=== PATIENT | female | born 1935 | race Caucasian/White ===

== ENCOUNTER 2016-09-27 12:01 | Emergency (ER) | payer MEDICARE, OTHER ==
--- NOTE | 2016-09-27 12:35 | ER Document Report ---
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 TRAVEL OUTSIDE OF THE [place] IN LAST 30 DAYS: No - Related Data Allergies/Adverse Reactions: Penicillins Allergy (Intermediate, Verified 10/26/15 08:13) Hives Past Medical History - Past Medical History Cardiac Medical History: Reports: Hx Coronary Artery Disease, Hx Hypercholesterolemia, Hx Hypertension - MEDICATED, Hx Pulmonary Embolism Denies: Hx Heart Attack Pulmonary Medical History: Reports: Hx Asthma, Hx Pneumonia Denies: Hx Bronchitis, Hx COPD Neurological Medical History: Denies: Hx Cerebrovascular Accident, Hx Seizures Renal/ Medical History: Denies: Hx Peritoneal Dialysis GI Medical History: Reports: Hx Gastroesophageal Reflux Disease, Hx Hiatal Hernia. Denies: Hx Hepatitis, Hx Ulcer Musculoskeltal Medical History: Reports Hx Arthritis Infectious Medical History: Denies: Hx Hepatitis Past Surgical History: Reports: Hx Abdominal Surgery - tummy tuck, Hx Cholecystectomy, Hx Hysterectomy, Hx Orthopedic Surgery - right knee. Denies: Hx Mastectomy, Hx Open Heart Surgery, Hx Oral Surgery, Hx Pacemaker - Immunizations Hx Diphtheria, Pertussis, Tetanus Vaccination: Yes - 2008 Physical Exam - Vital signs Vitals: Temp Pulse Resp BP Pulse Ox 99 F 70 18 152/79 H 95 09/27/16 12:13 09/27/16 12:13 09/27/16 12:13 09/27/16 12:13 09/27/16 12:13 Course - Vital Signs Vital signs: Temp Pulse Resp BP Pulse Ox 99 F 70 18 152/79 H 95 09/27/16 12:13 09/27/16 12:13 09/27/16 12:13 09/27/16 12:13 09/27/16 12:13
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
[2016-09-27 13:00] LABS: ABSOLUTE BASOPHILS # (AUTO) 0.1 10^3/uL (0.0-0.2); ABSOLUTE EOSINOPHILS # (AUTO) 0.4 10^3/uL (0.0-0.6); ABSOLUTE LYMPHOCYTES (AUTO) 1.9 10^3/uL (0.5-4.7); ABSOLUTE MONOCYTES (AUTO) 0.6 10^3/uL (0.1-1.4); ABSOLUTE NEUT (AUTO) 5.1 10^3/uL (1.7-8.2); BASOPHILS % (AUTO) 1.2 % (0-2); EOSINOPHILS % (AUTO) 4.4 % (0-6); HEMATOCRIT 44.3 % (36.0-47.0); HEMOGLOBIN 14.6 g/dL (12.0-15.5); HGB HCT DIFFERENCE -0.5; LYMPHOCYTES % (AUTO) 23.7 % (13-45); MEAN CORPUSCULAR HGB CONC 32.9 g/dL (32.0-36.0); MEAN CORPUSCULAR VOLUME 91 fl (80-97); MONOCYTES % (AUTO) 7.9 % (3-13); RED BLOOD COUNT 4.86 10^6/uL (3.72-5.28); RED CELL DISTRIBUTION WIDTH 15.9 % (11.5-14.0); SEGMENTED NEUTROPHILS % (AUTO) 62.8 % (42-78); WHITE BLOOD COUNT 8.1 10^3/uL (4.0-10.5)
[2016-09-27 13:12] LABS: PROTHROMBIN TIME 22.7 SEC (11.4-15.4)
[2016-09-27 13:17] LABS: ALANINE AMINOTRANSFERASE 22 U/L (9-52); ALBUMIN 4.1 g/dL (3.5-5.0); ALKALINE PHOSPHATASE 98 U/L (38-126); ANION GAP 7 (5-19); ASPARTATE AMINO TRANSFERASE 19 U/L (14-36); BILIRUBIN,DIRECT 0.4 mg/dL (0.0-0.4); BILIRUBIN,TOTAL 0.6 mg/dL (0.2-1.3); BLOOD UREA NITROGEN 11 mg/dL (7-20); CALCIUM 9.3 mg/dL (8.4-10.2); CARBON DIOXIDE 33 mmol/L (22-30); CHLORIDE 101 mmol/L (98-107); CREATINE KINASE 62 U/L (30-135); CREATININE RESULT 0.73 mg/dL (0.52-1.25); GLUCOSE 95 mg/dL (75-110); POTASSIUM 4.5 mmol/L (3.6-5.0); SODIUM 140.8 mmol/L (137-145); TOTAL PROTEIN 7.3 g/dL (6.3-8.2)
[2016-09-27 13:28] LABS: CREATINE KINASE MB 0.61 ng/mL (<4.55)
[2016-09-27 13:31] LABS: TROPONIN I < 0.012 ng/mL
[2016-09-27 15:40] VITALS: BP 156/75
--- NOTE | 2016-09-27 17:04 | EKG REPORT ---
SEVERITY:- ABNORMAL ECG - SINUS RHYTHM LEFT ANTERIOR FASCICULAR BLOCK CONSIDER ANTERIOR INFARCT : Confirmed by: Killian Ambriz 27-Sep-2016 17:03:31
== END 2016-09-27 15:40 | disposition home or self-care (01) ==
LOC: ER 12:01
DX: R07.9 Chest pain, unspecified (principal); F41.9 Anxiety disorder, unspecified; I25.10 Atherosclerotic heart disease of native coronary artery without angina pectoris; E78.00 Pure hypercholesterolemia, unspecified; K21.9 Gastro-esophageal reflux disease without esophagitis; I10 Essential (primary) hypertension; Z86.711 Personal history of pulmonary embolism; Z88.0 Allergy status to penicillin; Z90.49 Acquired absence of other specified parts of digestive tract; Z90.710 Acquired absence of both cervix and uterus
CPT/HCPCS: 36415; 71010; 71275; 80053; 82550; 82553; 84484; 85025; 85610; 93005; 93010; 99285

== ENCOUNTER → 2016-11-11 | Outpatient (CLI) | payer MEDICARE, OTHER ==
[2016-11-11 10:56] LABS: ABSOLUTE BASOPHILS # (AUTO) 0.1 10^3/uL (0.0-0.2); ABSOLUTE EOSINOPHILS # (AUTO) 0.2 10^3/uL (0.0-0.6); ABSOLUTE LYMPHOCYTES (AUTO) 1.7 10^3/uL (0.5-4.7); ABSOLUTE MONOCYTES (AUTO) 0.5 10^3/uL (0.1-1.4); ABSOLUTE NEUT (AUTO) 4.6 10^3/uL (1.7-8.2); BASOPHILS % (AUTO) 0.9 % (0-2); EOSINOPHILS % (AUTO) 2.6 % (0-6); HEMATOCRIT 46.4 % (36.0-47.0); HEMOGLOBIN 15.3 g/dL (12.0-15.5); HGB HCT DIFFERENCE -0.5; LYMPHOCYTES % (AUTO) 24.5 % (13-45); MEAN CORPUSCULAR HEMOGLOBIN 30.2 pg (27.0-33.4); MEAN CORPUSCULAR VOLUME 91 fl (80-97); MONOCYTES % (AUTO) 6.6 % (3-13); RED BLOOD COUNT 5.07 10^6/uL (3.72-5.28); RED CELL DISTRIBUTION WIDTH 14.8 % (11.5-14.0); SEGMENTED NEUTROPHILS % (AUTO) 65.4 % (42-78)
[2016-11-11 11:19] LABS: CHOLESTEROL 127.75 mg/dL (0-200); Direct HDL 58 mg/dL (>40); TRIGLYCERIDES 165 mg/dL (<150)
[2016-11-11 11:37] LABS: DIRECT LDL 45 mg/dL (<100)
[2016-11-11 11:53] LABS: ALANINE AMINOTRANSFERASE 26 U/L (9-52); ALBUMIN 3.9 g/dL (3.5-5.0); ALKALINE PHOSPHATASE 90 U/L (38-126); ANION GAP 11 (5-19); ASPARTATE AMINO TRANSFERASE 18 U/L (14-36); BILIRUBIN,DIRECT 0.3 mg/dL (0.0-0.4); BILIRUBIN,TOTAL 0.4 mg/dL (0.2-1.3); BLOOD UREA NITROGEN 8 mg/dL (7-20); CALCIUM 9.2 mg/dL (8.4-10.2); CARBON DIOXIDE 29 mmol/L (22-30); CHLORIDE 103 mmol/L (98-107); CREATININE RESULT 0.65 mg/dL (0.52-1.25); GLUCOSE 97 mg/dL (75-110); POTASSIUM 4.5 mmol/L (3.6-5.0); SODIUM 142.6 mmol/L (137-145)
[2016-11-11 12:05] LABS: ANION GAP 11 (5-19); BLOOD UREA NITROGEN 8 mg/dL (7-20); CALCIUM 9.2 mg/dL (8.4-10.2); CARBON DIOXIDE 29 mmol/L (22-30); CHLORIDE 103 mmol/L (98-107); CREATININE RESULT 0.65 mg/dL (0.52-1.25); GLUCOSE 97 mg/dL (75-110); POTASSIUM 4.5 mmol/L (3.6-5.0); SODIUM 142.6 mmol/L (137-145)
== END ==
LOC: OD 10:10
PROVIDERS: ATTEND Physician Assistant
DX: B35.1 Tinea unguium (principal); E11.9 Type 2 diabetes mellitus without complications; E78.5 Hyperlipidemia, unspecified; I10 Essential (primary) hypertension; Z79.899 Other long term (current) drug therapy
CPT/HCPCS: 36415; 80048; 80053; 80061; 82043; 83036; 84443; 85025

== ENCOUNTER 2017-06-23 16:04 | Emergency (ER) | payer MEDICARE, OTHER ==
--- NOTE | 2017-06-23 16:56 | ER Document Report ---
ED Medical Screen (RME) - General Chief Complaint: GI Bleeding Stated Complaint: VOMITING Time Seen by Provider: 06/23/17 16:55 Notes: Patient states that she has been vomiting for the last several days and then today started vomiting up a lot of blood. States that it was black and she knows that it is blood. Has some epigastric abdominal pain as well. I have greeted and performed a rapid initial assessment of this patient. A comprehensive ED assessment and evaluation of the patient, analysis of test results and completion of the medical decision making process will be conducted by additional ED providers. TRAVEL OUTSIDE OF THE [place] IN LAST 30 DAYS: No - Related Data Allergies/Adverse Reactions: Penicillins Allergy (Intermediate, Verified 09/27/16 12:44) Hives Past Medical History - Past Medical History Cardiac Medical History: Reports: Hx Coronary Artery Disease, Hx Hypercholesterolemia, Hx Hypertension - MEDICATED, Hx Pulmonary Embolism Denies: Hx Heart Attack Pulmonary Medical History: Reports: Hx Asthma, Hx Pneumonia Denies: Hx Bronchitis, Hx COPD Neurological Medical History: Denies: Hx Cerebrovascular Accident, Hx Seizures Renal/ Medical History: Denies: Hx Peritoneal Dialysis GI Medical History: Reports: Hx Gastroesophageal Reflux Disease, Hx Hiatal Hernia. Denies: Hx Hepatitis, Hx Ulcer Musculoskeltal Medical History: Reports Hx Arthritis Infectious Medical History: Denies: Hx Hepatitis Past Surgical History: Reports: Hx Abdominal Surgery - tummy tuck, Hx Cholecystectomy, Hx Hysterectomy, Hx Orthopedic Surgery - right knee. Denies: Hx Mastectomy, Hx Open Heart Surgery, Hx Oral Surgery, Hx Pacemaker - Immunizations Hx Diphtheria, Pertussis, Tetanus Vaccination: Yes - 2008 Physical Exam - Vital signs Vitals: Temp Pulse Resp BP Pulse Ox 98.5 F 80 21 H 102/78 96 06/23/17 16:29 06/23/17 16:29 06/23/17 16:29 06/23/17 16:29 06/23/17 16:29 Course - Vital Signs Vital signs: Temp Pulse Resp BP Pulse Ox 98.5 F 80 21 H 102/78 96 06/23/17 16:29 06/23/17 16:29 06/23/17 16:29 06/23/17 16:29 06/23/17 16:29
[2017-06-23 18:11] LABS: ABSOLUTE BASOPHILS # (AUTO) 0.1 10^3/uL (0.0-0.2); ABSOLUTE EOSINOPHILS # (AUTO) 0.1 10^3/uL (0.0-0.6); ABSOLUTE LYMPHOCYTES (AUTO) 1.9 10^3/uL (0.5-4.7); ABSOLUTE MONOCYTES (AUTO) 0.6 10^3/uL (0.1-1.4); ABSOLUTE NEUT (AUTO) 5.1 10^3/uL (1.7-8.2); BASOPHILS % (AUTO) 1.1 % (0-2); EOSINOPHILS % (AUTO) 1.6 % (0-6); HEMATOCRIT 41.1 % (36.0-47.0); HEMOGLOBIN 13.7 g/dL (12.0-15.5); LYMPHOCYTES % (AUTO) 24.4 % (13-45); MEAN CORPUSCULAR HEMOGLOBIN 29.7 pg (27.0-33.4); MEAN CORPUSCULAR HGB CONC 33.3 g/dL (32.0-36.0); MEAN CORPUSCULAR VOLUME 89 fl (80-97); MONOCYTES % (AUTO) 7.6 % (3-13); PLATELET COUNT 262 10^3/uL (150-450); RED BLOOD COUNT 4.62 10^6/uL (3.72-5.28); RED CELL DISTRIBUTION WIDTH 14.5 % (11.5-14.0); SEGMENTED NEUTROPHILS % (AUTO) 65.3 % (42-78); TOTAL CELLS COUNTED % (AUTO) 100 %; WHITE BLOOD COUNT 7.9 10^3/uL (4.0-10.5)
[2017-06-23 18:13] LABS: INTERNATIONAL RATION (INR) 2.13
[2017-06-23 18:14] LABS: PARTIAL THROMBOPLASTIN TIME 39.1 SEC (23.5-35.8)
[2017-06-23 18:31] LABS: ALANINE AMINOTRANSFERASE 29 U/L (9-52); ALKALINE PHOSPHATASE 76 U/L (38-126); ANION GAP 7 (5-19); ASPARTATE AMINO TRANSFERASE 17 U/L (14-36); BILIRUBIN,DIRECT 0.1 mg/dL (0.0-0.4); BILIRUBIN,TOTAL 0.2 mg/dL (0.2-1.3); BLOOD UREA NITROGEN 21 mg/dL (7-20); CALCIUM 9.1 mg/dL (8.4-10.2); CARBON DIOXIDE 35 mmol/L (22-30); CHLORIDE 100 mmol/L (98-107); GLUCOSE 96 mg/dL (75-110); POTASSIUM 4.5 mmol/L (3.6-5.0); SODIUM 142.4 mmol/L (137-145); TOTAL PROTEIN 6.7 g/dL (6.3-8.2)
--- NOTE | 2017-06-23 18:35 | EKG REPORT ---
SEVERITY:- ABNORMAL ECG - SINUS RHYTHM LEFT ANTERIOR FASCICULAR BLOCK ABNRM R PROG, CONSIDER ASMI OR LEAD PLACEMENT BORDERLINE T ABNORMALITIES, ANTERIOR LEADS : Confirmed by: Biju Billings MD 23-Jun-2017 18:35:03
[2017-06-23] MEDS ORDERED: PANTOPRAZOLE SODIUM 40 MG VIAL IV ONE (20:16)
[2017-06-23] MEDS ORDERED: PANTOPRAZOLE SODIUM 40 MG VIAL IV PRN (20:16)
[2017-06-23] MEDS ORDERED: PHYTONADIONE 5 MG TABLET PO ONE (20:17)
--- NOTE | 2017-06-23 20:22 | ER Document Report ---
ED General - General Chief Complaint: GI Bleeding Stated Complaint: VOMITING Time Seen by Provider: 06/23/17 16:55 Notes: Patient is an 81-year-old female with a past medical history of factor V Leiden , prior upper GI bleed, currently anticoagulated on warfarin for a pulmonary embolus who presents with 3 days of vomiting and 4 episodes of dark bloody vomiting today. Patient reports "a lot of" coffee-ground emesis today. She denies a recent history of the same. She has not seen her primary doctor GI doctor regarding this concern. She does not take any form of proton pump inhibitor or H2 lamar. She notes a dull, constant, aching epigastric abdominal pain that has been present for the past 3-4 days. Nothing improves or worsens that pain. She denies any chest pain, shortness of breath or syncope. She denies any bright red blood vomitus, melena or hematochezia. TRAVEL OUTSIDE OF THE [place] IN LAST 30 DAYS: No - Related Data Allergies/Adverse Reactions: Penicillins Allergy (Intermediate, Verified 09/27/16 12:44) Hives Past Medical History - General Information source: Patient - Social History Smoking Status: Never Smoker Frequency of alcohol use: None Drug Abuse: None Lives with: Family Family History: Reviewed & Not Pertinent, Other Patient has suicidal ideation: No Patient has homicidal ideation: No - Past Medical History Cardiac Medical History: Reports: Hx Coronary Artery Disease, Hx Hypercholesterolemia, Hx Hypertension - MEDICATED, Hx Pulmonary Embolism Denies: Hx Heart Attack Pulmonary Medical History: Reports: Hx Asthma, Hx Pneumonia Denies: Hx Bronchitis, Hx COPD Neurological Medical History: Denies: Hx Cerebrovascular Accident, Hx Seizures Renal/ Medical History: Denies: Hx Peritoneal Dialysis GI Medical History: Reports: Hx Gastroesophageal Reflux Disease, Hx Hiatal Hernia. Denies: Hx Hepatitis, Hx Ulcer Musculoskeltal Medical History: Reports Hx Arthritis Infectious Medical History: Denies: Hx Hepatitis Past Surgical History: Reports: Hx Abdominal Surgery - tummy tuck, Hx Cholecystectomy, Hx Hysterectomy, Hx Orthopedic Surgery - right knee. Denies: Hx Mastectomy, Hx Open Heart Surgery, Hx Oral Surgery, Hx Pacemaker - Immunizations Hx Diphtheria, Pertussis, Tetanus Vaccination: Yes - 2008 Review of Systems - Review of Systems Notes: Constitutional: Negative for fever. HENT: Negative for sore throat. Eyes: Negative for visual changes. Cardiovascular: Negative for chest pain. Respiratory: Negative for shortness of breath. Gastrointestinal: Positive for epigastric abdominal pain and coffee-ground emesis Genitourinary: Negative for dysuria. Musculoskeletal: Negative for back pain. Skin: Negative for rash. Neurological: Negative for headaches, weakness or numbness. 10 point ROS negative except as marked above and in HPI. Physical Exam - Vital signs Vitals: Temp Pulse Resp BP Pulse Ox 98.5 F 80 21 H 102/78 96 06/23/17 16:29 06/23/17 16:29 06/23/17 16:29 06/23/17 16:29 06/23/17 16:29 Interpretation: Normal Notes: PHYSICAL EXAMINATION: GENERAL: Well-appearing, well-nourished and in no acute distress. HEAD: Atraumatic, normocephalic. EYES: Pupils equal round and reactive to light, extraocular movements intact, sclera anicteric, conjunctiva are normal. ENT: nares patent, oropharynx clear without exudates. Moist mucous membranes. NECK: Normal range of motion, supple without lymphadenopathy LUNGS: Breath sounds clear to auscultation bilaterally and equal. No wheezes rales or rhonchi. HEART: Regular rate and rhythm without murmurs ABDOMEN: Soft, nontender, normoactive bowel sounds. No guarding, no rebound. No masses appreciated. EXTREMITIES: Normal range of motion, no pitting or edema. No cyanosis. NEUROLOGICAL: No focal neurological deficits. Moves all extremities spontaneously and on command. PSYCH: Loquacious but polite and contact. SKIN: Warm, Dry, normal turgor, no rashes or lesions noted. Course - Re-evaluation Re-evalutation: 06/23/17 20:18 Patient presents with multiple episodes of dark bloody vomitus episodes today, currently and evaluated on warfarin with a therapeutic INR at 2.13. Patient is otherwise hemodynamically stable, no active vomiting here in the emergency department although she does have stool occult positive for blood. Abdominal exam is otherwise benign with the exception of mild epigastric abdominal tenderness. Hemoglobin is within acceptable limits but has dropped 2 points from a year ago. Will repeat hemoglobin, provide oral vitamin K, begin a Protonix infusion, and I have contacted [facility] for transfer as patient will require an endoscopy and we do not currently have GI available. 06/24/17 00:24 Patient has been reassessed prior to transport. Repeat hemoglobin has down trended by 0.7. She remains hemodynamically stable, no further episodes of hematemesis. Stable for transfer - Vital Signs Vital signs: Temp Pulse Resp BP Pulse Ox 97.6 F 74 17 125/72 92 06/24/17 00:36 06/24/17 00:36 06/24/17 00:36 06/24/17 00:36 06/24/17 00:36 - Laboratory Result Diagrams: 06/23/17 20:30 06/23/17 17:43 Laboratory results interpreted by me: 06/23/17 06/23/17 06/23/17 17:43 17:43 17:43 RDW 14.5 H PT 25.0 H APTT 39.1 H Carbon Dioxide 35 H BUN 21 H 06/23/17 20:30 RDW 14.9 H PT APTT Carbon Dioxide BUN Discharge - Discharge Disposition: [facility] Referrals: MIGUEL ANGEL STALLWORTH MD [Primary Care Provider] - Follow up as needed
[2017-06-23 20:45] LABS: HEMATOCRIT 38.9 % (36.0-47.0); HEMOGLOBIN 13.1 g/dL (12.0-15.5); MEAN CORPUSCULAR HEMOGLOBIN 30.1 pg (27.0-33.4); MEAN CORPUSCULAR HGB CONC 33.7 g/dL (32.0-36.0); MEAN CORPUSCULAR VOLUME 89 fl (80-97); PLATELET COUNT 240 10^3/uL (150-450); RED BLOOD COUNT 4.35 10^6/uL (3.72-5.28); RED CELL DISTRIBUTION WIDTH 14.9 % (11.5-14.0)
[2017-06-24 00:13] VITALS: BP 125/72
== END 2017-06-24 00:50 | disposition short-term general hospital (02) ==
LOC: ER 16:04
DX: K92.2 Gastrointestinal hemorrhage, unspecified (principal); D68.51 Activated protein C resistance; K92.1 Melena; R11.2 Nausea with vomiting, unspecified; Z79.01 Long term (current) use of anticoagulants; Z86.711 Personal history of pulmonary embolism
CPT/HCPCS: 93005; 99285; 96365; 96366; 36415; 85025; 85027; 85610; 85730; 82272; 80053; 84484; 93010; A9270; C9113; J3490; S0164

== ENCOUNTER 2017-07-12 08:26 | Day surgery (SDC) | payer MEDICARE, OTHER ==
[~2017-07-12 08:26] MED LIST: PROPOFOL INJ 200 MG/20 ML VIAL IV ONE
[2017-07-12] MEDS ORDERED: PROPOFOL INJ 200 MG/20 ML VIAL IV ONE (10:33)
[2017-07-12] MEDS ORDERED: SIMETHICONE 80 MG TAB.CHEW ONE (10:34)
[2017-07-12] MEDS ORDERED: ACETAMINOPHEN 325 MG TABLET ONE (10:45)
[2017-07-12 11:31] VITALS: BP 167/86
--- NOTE | 2017-07-12 15:53 | Operative Report ---
Operative Report DATE OF SURGERY: 07/12/17 Operative Report: The risks, benefits and alternatives of the procedure including risks of bleeding, patient requiring surgery are explained to the patient in detail and informed consent was obtained. Patient is brought back to the endoscopy suite and placed in a left, lateral decubital position. Timeout was called. Propofol medications administered. A rectal examination is done which did not reveal any masses, tears or fissures. An Olympus videoscope was inserted into the patient's rectum. It is carefully advanced all the way to the cecum. The cecum was identified by the usual anatomical landmarks including the ileocecal valve as well as appendiceal office. Photodocumentation is obtained. Scope was then sequentially pulled back via the various segments of the colon including the ascending colon, hepatic flexure, transverse colon, splenic flexure, descending colon and finally into the rectosigmoid portions of the colon. Retroflexion maneuvers performed. The risks benefits and alternatives of the procedure explained to the patient in detail and informed consent is obtained.A GIF Olympus video scope was inserted into the patient's mouth and hypopharynx, the esophagus is identified intubated and insufflated, the scope was then advanced through the esophagus stomach and duodenum, retroflexion maneuver is done ,the esophagus stomach and first and second portions of the duodenum examined PREOPERATIVE DIAGNOSIS: History of previous hematemesis. Rectal bleeding POSTOPERATIVE DIAGNOSIS: Descending colon polyp is removed via snare polypectomy. Internal hemorrhoids. Diverticulosis. Hiatal hernia. Gastritis status post biopsy rule out Helicobacter pylori OPERATION: Colonoscopy with snare polypectomy. EGD with biopsy SURGEON: ROSARIO MITCHELL ANESTHESIA: LMAC TISSUE REMOVED OR ALTERED: As noted above. COMPLICATIONS: None. ESTIMATED BLOOD LOSS: None. INTRAOPERATIVE FINDINGS: As noted above. PROCEDURE: Patient tolerated procedure well. No immediate postprocedure complications are noted. Patient discharged in good condition. Discharge date 07/12/2017. Discharge diet: Regular. Discharge activity: Regular. 2-3 week follow-up to discuss findings. 3-5 year surveillance colonoscopy. Can resume Coumadin. Patient is instructed to call the office or proceed to the emergency room should there be any further problems or questions.
== END 2017-07-12 11:10 | disposition home or self-care (01) ==
LOC: END 08:26
PROVIDERS: ATTEND Internal Medicine Gastroenterology
PROC: 0DB68ZX Excision of Stomach, Via Natural or Artificial Opening Endoscopic, Diagnostic (ICD-10-PCS; principal; 2017-07-12 10:00)
PROC: 0DBM8ZX Excision of Descending Colon, Via Natural or Artificial Opening Endoscopic, Diagnostic (ICD-10-PCS; 2017-07-12 10:00)
DX: K29.30 Chronic superficial gastritis without bleeding (principal); K63.5 Polyp of colon; K92.0 Hematemesis; K62.5 Hemorrhage of anus and rectum; K44.9 Diaphragmatic hernia without obstruction or gangrene; K57.30 Diverticulosis of large intestine without perforation or abscess without bleeding; K64.8 Other hemorrhoids; K31.9 Disease of stomach and duodenum, unspecified; E11.9 Type 2 diabetes mellitus without complications; E78.00 Pure hypercholesterolemia, unspecified; Z79.899 Other long term (current) drug therapy
CPT/HCPCS: 43239; 45385; 82962; 88342 ×2; 88305 ×2; A9270 ×2; J2704; 813

== ENCOUNTER 2017-08-26 13:17 | Emergency (ER) | payer MEDICARE, OTHER ==
[2017-08-26] MEDS ORDERED: IPRATROPIUM/ALBUTEROL 0.5-2.5 MG/3 ML AMPUL NEB ONE (13:32)
[2017-08-26] MEDS ORDERED: PREDNISONE 20 MG TABLET PO ONE (13:32)
--- NOTE | 2017-08-26 13:36 | ER Document Report ---
ED Medical Screen (RME) - General Chief Complaint: Shortness Of Breath Stated Complaint: COUGH,CONGESTION,WHEEZING Time Seen by Provider: 08/26/17 13:29 Notes: RME DISCLOSURE I have seen this patient as part of a Rapid Medical Evaluation and, if applicable, placed any initially appropriate orders. The patient will be seen and fully evaluated, including a full history and physical exam, by a provider ( in Main ED or Fast Track) when a room becomes available. 81-year-old female here with complaints of cough shortness of breath wheezing ongoing for the past 6-7 days. Initially the cough was productive of green sputum but now "I can get anything to come up". She has not yet seen a physician. She has been taking [id number] medications. Quit smoking 30 years ago. TRAVEL OUTSIDE OF THE [place] IN LAST 30 DAYS: No COUNTRY TRAVELED TO/FROM: [place] - Related Data Allergies/Adverse Reactions: Penicillins Allergy (Intermediate, Verified 07/12/17 08:30) Hives Past Medical History - Social History Chew tobacco use (# tins/day): No Frequency of alcohol use: None Drug Abuse: None - Past Medical History Cardiac Medical History: Reports: Hx Coronary Artery Disease, Hx Hypercholesterolemia, Hx Hypertension - MEDICATED, Hx Pulmonary Embolism Denies: Hx Heart Attack Pulmonary Medical History: Reports: Hx Asthma, Hx Pneumonia Denies: Hx Bronchitis, Hx COPD Neurological Medical History: Denies: Hx Cerebrovascular Accident, Hx Seizures Renal/ Medical History: Denies: Hx Peritoneal Dialysis GI Medical History: Reports: Hx Gastroesophageal Reflux Disease, Hx Hiatal Hernia. Denies: Hx Hepatitis, Hx Ulcer Musculoskeltal Medical History: Reports Hx Arthritis Infectious Medical History: Denies: Hx Hepatitis Past Surgical History: Reports: Hx Abdominal Surgery - tummy tuck, Hx Cholecystectomy, Hx Hysterectomy, Hx Orthopedic Surgery - right knee. Denies: Hx Mastectomy, Hx Open Heart Surgery, Hx Oral Surgery, Hx Pacemaker - Immunizations Hx Diphtheria, Pertussis, Tetanus Vaccination: Yes - 2008 Physical Exam - Vital signs Vitals: Temp Pulse Resp BP Pulse Ox 98.0 F 96 24 H 128/78 H 93 08/26/17 13:23 08/26/17 13:23 08/26/17 13:23 08/26/17 13:23 08/26/17 13:23 Course - Vital Signs Vital signs: Temp Pulse Resp BP Pulse Ox 98.0 F 96 24 H 128/78 H 93 08/26/17 13:23 08/26/17 13:23 08/26/17 13:23 08/26/17 13:23 08/26/17 13:23
[2017-08-26 14:25] LABS: ABSOLUTE EOSINOPHILS # (AUTO) 0.1 10^3/uL (0.0-0.6); ABSOLUTE LYMPHOCYTES (AUTO) 1.4 10^3/uL (0.5-4.7); ABSOLUTE MONOCYTES (AUTO) 0.5 10^3/uL (0.1-1.4); ABSOLUTE NEUT (AUTO) 2.4 10^3/uL (1.7-8.2); BASOPHILS % (AUTO) 0.8 % (0-2); EOSINOPHILS % (AUTO) 2.3 % (0-6); HEMATOCRIT 44.2 % (36.0-47.0); HEMOGLOBIN 14.8 g/dL (12.0-15.5); LYMPHOCYTES % (AUTO) 32.1 % (13-45); MEAN CORPUSCULAR HEMOGLOBIN 30.1 pg (27.0-33.4); MEAN CORPUSCULAR HGB CONC 33.5 g/dL (32.0-36.0); MEAN CORPUSCULAR VOLUME 90 fl (80-97); MONOCYTES % (AUTO) 11.8 % (3-13); PLATELET COUNT 230 10^3/uL (150-450); RED BLOOD COUNT 4.91 10^6/uL (3.72-5.28); RED CELL DISTRIBUTION WIDTH 14.7 % (11.5-14.0); TOTAL CELLS COUNTED % (AUTO) 100 %; WHITE BLOOD COUNT 4.5 10^3/uL (4.0-10.5)
[2017-08-26 14:42] LABS: ANION GAP 11 (5-19); BLOOD UREA NITROGEN 11 mg/dL (7-20); CALCIUM 9.2 mg/dL (8.4-10.2); CARBON DIOXIDE 28 mmol/L (22-30); CHLORIDE 100 mmol/L (98-107); GLUCOSE 123 mg/dL (75-110); POTASSIUM 4.2 mmol/L (3.6-5.0)
--- NOTE | 2017-08-26 14:43 | ER Document Report ---
ED General - General Mode of Arrival: Ambulatory Information source: Patient TRAVEL OUTSIDE OF THE [place] IN LAST 30 DAYS: No COUNTRY TRAVELED TO/FROM: [place] <LUZ KEATING - Last Filed: 08/26/17 14:44> <SUZANNAJEAN-PIERREJOSE EDUARDO - Last Filed: 08/26/17 23:21> - General Chief Complaint: Shortness Of Breath Stated Complaint: COUGH,CONGESTION,WHEEZING Time Seen by Provider: 08/26/17 13:29 Notes: Patient is an 81 year old female with a history of COPD, Leiden Factor 5, Emphysema, and diabetes presents to the emergency department complaining of cough and congestion as well as shortness of breath. Patient states that her symptoms were onset 6 days ago after she took a flight to [place] from [place]. Patient states that after over the last 6 days she had a peak temperature of 103.4. Patient states that she initially had a productive cough with green sputum but states she now has a nonproductive cough. Patient's PCP is Dr. Mejia and her process tank tender is Dr. Garber. (LUZ KEATING) - Related Data Allergies/Adverse Reactions: Penicillins Allergy (Intermediate, Verified 07/12/17 08:30) Hives Past Medical History - General Information source: Patient - Social History Smoking Status: Former Smoker Chew tobacco use (# tins/day): No Frequency of alcohol use: None Drug Abuse: None Family History: Reviewed & Not Pertinent, Other Patient has suicidal ideation: No Patient has homicidal ideation: No - Past Medical History Cardiac Medical History: Reports: Hx Coronary Artery Disease, Hx Hypercholesterolemia, Hx Hypertension - MEDICATED, Hx Pulmonary Embolism Pulmonary Medical History: Reports: Hx Asthma, Hx Bronchitis, Hx COPD, Hx Pneumonia GI Medical History: Reports: Hx Gastroesophageal Reflux Disease, Hx Hiatal Hernia Musculoskeltal Medical History: Reports Hx Arthritis Past Surgical History: Reports: Hx Abdominal Surgery - tummy tuck, Hx Cholecystectomy, Hx Hysterectomy, Hx Orthopedic Surgery - right knee - Immunizations Hx Diphtheria, Pertussis, Tetanus Vaccination: Yes - 2008 <LUZ KEATING - Last Filed: 08/26/17 14:44> Review of Systems - Review of Systems Constitutional: See HPI, Fever EENT: See HPI Cardiovascular: No symptoms reported Respiratory: See HPI, Cough, Short of breath Gastrointestinal: No symptoms reported Genitourinary: No symptoms reported Female Genitourinary: No symptoms reported Musculoskeletal: No symptoms reported Skin: No symptoms reported Hematologic/Lymphatic: No symptoms reported Neurological/Psychological: No symptoms reported -: Yes All other systems reviewed and negative <LUZ KEATING - Last Filed: 08/26/17 14:44> Physical Exam <RISHABHAXELTANNER - Last Filed: 08/26/17 14:44> <JOSE EDUARDO SAM - Last Filed: 08/26/17 23:21> - Vital signs Vitals: Temp Pulse Resp BP Pulse Ox 98.0 F 96 24 H 128/78 H 93 08/26/17 13:23 08/26/17 13:23 08/26/17 13:23 08/26/17 13:23 08/26/17 13:23 - Notes Notes: GENERAL: Alert, interacts well. No acute distress. HEAD: Normocephalic, atraumatic. EYES: Pupils equal, round, and reactive to light. Extraocular movements intact. ENT: Oral mucosa moist, tongue midline. NECK: Full range of motion. Supple. Trachea midline. LUNGS: Wet cough with coarse rhonchi, trace expiratory wheezes. No rales. No respiratory distress. HEART: Regular rate and rhythm. No murmurs, gallops, or rubs. ABDOMEN: Soft, non-tender. Non-distended. Bowel sounds present in all 4 quadrants. EXTREMITIES: Moves all 4 extremities spontaneously. NEUROLOGICAL: Alert and oriented x3. Normal speech. PSYCH: Normal affect, normal mood. SKIN: Warm, dry, normal turgor. No rashes or lesions noted. (LUZ KEATING) Course - Laboratory Result Diagrams: 08/26/17 13:59 08/26/17 13:59 <LUZ KEATING - Last Filed: 08/26/17 14:44> - Laboratory Result Diagrams: 08/26/17 13:59 08/26/17 13:59 <JOSE EDUARDO SAM - Last Filed: 08/26/17 23:21> - Re-evaluation Re-evalutation: 08/26/17 16:50 CBC unremarkable, BMP unremarkable, chest x-ray shows no acute process. Patient is having an acute exacerbation of COPD with increased sputum production and fevers, this is been going on for at least 7 days. Patient fits criteria for treatment with antibiotics. I will start azithromycin in addition to prednisone. Discharged home. (JOSE EDUARDO SAM) - Vital Signs Vital signs: Temp Pulse Resp BP Pulse Ox 98.0 F 96 20 146/71 H 94 08/26/17 13:23 08/26/17 13:23 08/26/17 16:01 08/26/17 16:01 08/26/17 16:01 - Laboratory Laboratory results interpreted by me: 08/26/17 08/26/17 13:59 13:59 RDW 14.7 H Glucose 123 H Discharge <LUZ KEATING - Last Filed: 08/26/17 14:44> <JOSE EDUARDO SAM - Last Filed: 08/26/17 23:21> - Discharge Clinical Impression: Acute exacerbation of chronic obstructive pulmonary disease (COPD) Condition: Stable Disposition: HOME, SELF-CARE Additional Instructions: Today you have an acute exacerbation of your COPD. At this is a bacterial bronchitis. Please take your breathing treatments and inhalers, steroids and antibiotics as directed. Do not stop the steroids or the antibiotics early. Please return to the emergency department for worsening cough, worsening shortness of breath or any new or concerning symptoms. Prescriptions: Azithromycin 250 mg PO DAILY #4 tablet Prednisone [Deltasone 20 mg Tablet] 3 tab PO DAILY 4 Days tablet Referrals: MIGUEL ANGEL MEJIA MD [Primary Care Provider] - Follow up in 3-5 days Scribe Attestation: 08/26/17 23:21 I personally performed the services described in the documentation, reviewed and edited the documentation which was dictated to the scribe in my presence, and it accurately records my words and actions. (JOSE EDUARDO SAM) Scribe Documentation - Scribe Written by Sin:: Sin Arora, 08/26/2017 14:51 acting as scribe for :: Júnior <LUZ KEATING - Last Filed: 08/26/17 14:44>
--- NOTE | 2017-08-26 15:29 | RADIOLOGY REPORT (SQ) ---
EXAM DESCRIPTION: CHEST 2 VIEWS COMPLETED DATE/TIME: 08/26/2017 3:07 pm REASON FOR STUDY: cough sob; eval pneumonia COMPARISON: 05/05/2015 EXAM PARAMETERS: NUMBER OF VIEWS: two views TECHNIQUE: Digital Frontal and Lateral radiographic views of the chest acquired. RADIATION DOSE: NA LIMITATIONS: none FINDINGS: LUNGS AND PLEURA: No consolidation, masses or pneumothorax. Similar interstitial -nodular markings. No pleural effusion. MEDIASTINUM AND HILAR STRUCTURES: Stable. HEART AND VASCULAR STRUCTURES: Heart normal size. No evidence for failure. BONES: No acute findings. HARDWARE: None in the chest. OTHER: No other significant finding. IMPRESSION: NO ACUTE RADIOGRAPHIC FINDING IN THE CHEST. TECHNICAL DOCUMENTATION: JOB ID: [id number] 2010 [employer]- All Rights Reserved Reading location - IP/workstation name: [email or web address]
[2017-08-26 16:06] VITALS: BP 146/71
[2017-08-26] MEDS ORDERED: AZITHROMYCIN 250 MG TABLET PO ONE (16:49)
== END 2017-08-26 17:02 | disposition home or self-care (01) ==
LOC: ER 13:17
DX: J43.9 Emphysema, unspecified (principal); R06.02 Shortness of breath; R05 Cough; R09.81 Nasal congestion; R06.2 Wheezing; D68.51 Activated protein C resistance; E11.9 Type 2 diabetes mellitus without complications; R50.9 Fever, unspecified; Z87.891 Personal history of nicotine dependence; I25.10 Atherosclerotic heart disease of native coronary artery without angina pectoris; I10 Essential (primary) hypertension
CPT/HCPCS: 94640; 99285; 36415; 87040; 85025; 80048; 71046; A9270 ×3; J7512; J7620

== ENCOUNTER 2017-09-01 14:18 | Emergency (ER) | payer MEDICARE, OTHER ==
[2017-09-01] MEDS ORDERED: IPRATROPIUM/ALBUTEROL 0.5-2.5 MG/3 ML AMPUL NEB ONE (15:36)
[2017-09-01] MEDS ORDERED: METHYLPREDNISOLONE INJ 125 MG/2 ML SDV IV ONE (15:36)
[2017-09-01 16:07] LABS: ABSOLUTE BASOPHILS # (AUTO) 0.1 10^3/uL (0.0-0.2); ABSOLUTE EOSINOPHILS # (AUTO) 0.2 10^3/uL (0.0-0.6); ABSOLUTE LYMPHOCYTES (AUTO) 2.7 10^3/uL (0.5-4.7); ABSOLUTE NEUT (AUTO) 7.3 10^3/uL (1.7-8.2); BASOPHILS % (AUTO) 0.7 % (0-2); EOSINOPHILS % (AUTO) 1.6 % (0-6); HEMATOCRIT 42.2 % (36.0-47.0); HEMOGLOBIN 13.8 g/dL (12.0-15.5); MEAN CORPUSCULAR HEMOGLOBIN 29.7 pg (27.0-33.4); MEAN CORPUSCULAR HGB CONC 32.7 g/dL (32.0-36.0); MEAN CORPUSCULAR VOLUME 91 fl (80-97); MONOCYTES % (AUTO) 8.5 % (3-13); PLATELET COUNT 485 10^3/uL (150-450); RED BLOOD COUNT 4.65 10^6/uL (3.72-5.28); RED CELL DISTRIBUTION WIDTH 14.7 % (11.5-14.0); SEGMENTED NEUTROPHILS % (AUTO) 65.2 % (42-78); TOTAL CELLS COUNTED % (AUTO) 100 %; WHITE BLOOD COUNT 11.2 10^3/uL (4.0-10.5)
[2017-09-01 16:10] LABS: VENOUS BLOOD BASE EXCESS 3.6 mmol/L; VENOUS BLOOD HCO3 28.8 mmol/L (20-32); VENOUS BLOOD PCO2 45.7 mmHg (35-63); VENOUS BLOOD PH 7.42 (7.30-7.42)
--- NOTE | 2017-09-01 16:15 | RADIOLOGY REPORT (SQ) ---
EXAM DESCRIPTION: CHEST 2 VIEWS COMPLETED DATE/TIME: 09/01/2017 4:05 pm REASON FOR STUDY: SOB COMPARISON: 08/26/2017. EXAM PARAMETERS: NUMBER OF VIEWS: two views TECHNIQUE: Digital Frontal and Lateral radiographic views of the chest acquired. RADIATION DOSE: NA LIMITATIONS: none FINDINGS: LUNGS AND PLEURA: No opacities, masses or pneumothorax. No pleural effusion. MEDIASTINUM AND HILAR STRUCTURES: No masses or contour abnormalities. HEART AND VASCULAR STRUCTURES: Heart normal size. No evidence for failure. BONES: No acute findings. HARDWARE: None in the chest. OTHER: Hiatal hernia. IMPRESSION: NO ACUTE RADIOGRAPHIC FINDING IN THE CHEST. TECHNICAL DOCUMENTATION: JOB ID: [id number] [employer]- All Rights Reserved Reading location - IP/workstation name: [email or web address]
[2017-09-01 16:33] LABS: ALANINE AMINOTRANSFERASE 25 U/L (9-52); ALBUMIN 3.5 g/dL (3.5-5.0); ALKALINE PHOSPHATASE 66 U/L (38-126); ANION GAP 9 (5-19); ASPARTATE AMINO TRANSFERASE 71 U/L (14-36); BILIRUBIN,DIRECT 0.3 mg/dL (0.0-0.4); BILIRUBIN,TOTAL 0.3 mg/dL (0.2-1.3); BLOOD UREA NITROGEN 17 mg/dL (7-20); CALCIUM 8.3 mg/dL (8.4-10.2); CARBON DIOXIDE 29 mmol/L (22-30); CHLORIDE 101 mmol/L (98-107); CREATINE KINASE 41 U/L (30-135); GLUCOSE 89 mg/dL (75-110); POTASSIUM 4.6 mmol/L (3.6-5.0); SODIUM 138.6 mmol/L (137-145); TOTAL PROTEIN 6.3 g/dL (6.3-8.2)
--- NOTE | 2017-09-01 16:33 | ER Document Report ---
ED Respiratory Problem - General Chief Complaint: Shortness Of Breath Stated Complaint: DIFFICULTY BREATHING Time Seen by Provider: 09/01/17 15:35 Notes: The patient is an 81-year-old female, past medical history COPD, presents with several weeks of cough and mild shortness of breath. She was seen in the ER 6 days ago and started on prednisone and azithromycin with improvement of her shortness of breath and coughing. However, when she stopped her steroids, shortness of breath and coughing return. She has been trying her albuterol without much relief of her symptoms. She denies fevers, chest pain, hemoptysis , nausea, vomiting, sputum, recent travel, back pain, headache or rash. TRAVEL OUTSIDE OF THE [place] IN LAST 30 DAYS: No COUNTRY TRAVELED TO/FROM: [place] - Related Data Allergies/Adverse Reactions: Penicillins Allergy (Intermediate, Verified 07/12/17 08:30) Hives Past Medical History - General Information source: Patient - Social History Smoking Status: Former Smoker Family History: Reviewed & Not Pertinent, Other - Past Medical History Cardiac Medical History: Reports: Hx Coronary Artery Disease, Hx Hypercholesterolemia, Hx Hypertension - MEDICATED, Hx Pulmonary Embolism Denies: Hx Heart Attack Pulmonary Medical History: Reports: Hx Asthma, Hx Bronchitis, Hx COPD, Hx Pneumonia Neurological Medical History: Denies: Hx Cerebrovascular Accident, Hx Seizures Renal/ Medical History: Denies: Hx Peritoneal Dialysis GI Medical History: Reports: Hx Gastroesophageal Reflux Disease, Hx Hiatal Hernia. Denies: Hx Hepatitis, Hx Ulcer Musculoskeltal Medical History: Reports Hx Arthritis Infectious Medical History: Denies: Hx Hepatitis Past Surgical History: Reports: Hx Abdominal Surgery - tummy tuck, Hx Cholecystectomy, Hx Hysterectomy, Hx Orthopedic Surgery - right knee. Denies: Hx Mastectomy, Hx Open Heart Surgery, Hx Oral Surgery, Hx Pacemaker - Immunizations Hx Diphtheria, Pertussis, Tetanus Vaccination: Yes - 2008 Review of Systems - Review of Systems Notes: REVIEW OF SYSTEMS: CONSTITUTIONAL: -fevers, -chills EENT: -eye pain, -difficulty swallowing, -nasal congestion CARDIOVASCULAR: -chest pain, -syncope. RESPIRATORY: +cough, +SOB GASTROINTESTINAL: -abdominal pain, -nausea, -vomiting, -diarrhea GENITOURINARY: -dysuria, -hematuria MUSCULOSKELETAL: -back pain, -neck pain SKIN: -rash or skin lesions. HEMATOLOGIC: -easy bruising or bleeding. LYMPHATIC: -swollen, enlarged glands. NEUROLOGICAL: -altered mental status or loss of consciousness, -headache, - neurologic symptoms PSYCHIATRIC: -anxiety, -depression. ALL OTHER SYSTEMS REVIEWED AND NEGATIVE. Physical Exam - Vital signs Vitals: Temp Pulse Resp BP Pulse Ox 97.7 F 85 32 H 134/75 H 97 09/01/17 15:07 09/01/17 15:07 09/01/17 15:07 09/01/17 15:07 09/01/17 15:07 - Notes Notes: PHYSICAL EXAMINATION: GENERAL: Well-appearing, well-nourished and in no acute distress. HEAD: Atraumatic, normocephalic. EYES: Pupils equal round and reactive to light, extraocular movements intact, sclera anicteric, conjunctiva are normal. ENT: nares patent, oropharynx clear without exudates. Moist mucous membranes. NECK: Normal range of motion, supple without lymphadenopathy LUNGS: Mild end-expiratory wheezing. No tachypnea (despite initial triage vitals ). Speaking in full sentences without distress. HEART: Regular rate and rhythm without murmurs ABDOMEN: Soft, nontender, normoactive bowel sounds. No guarding, no rebound. No masses appreciated. EXTREMITIES: Normal range of motion, no pitting or edema. No cyanosis. NEUROLOGICAL: Cranial nerves grossly intact. Normal speech, normal gait. Normal sensory and motor exams. PSYCH: Normal mood, normal affect. SKIN: Warm, Dry, normal turgor, no rashes or lesions noted. Course - Re-evaluation Re-evalutation: Patient does not appear to be in any respiratory distress. She is satting 95% on room air and speaking in full sentences. After 3 duonebs and Solumedrol, she feels much better and her wheezing has completely resolved. She is no longer coughing. Patient's blood work is unremarkable, other than a slight leukocytosis, which may be related to her recent steroid use. No pneumonia on chest x-ray. Offered patient admission, but she feels much better and is requesting discharge home. Will send her home on a long steroid taper and refill of her albuterol with instructions to follow with her primary care physician. Given very strict return precautions and she understands. - Vital Signs Vital signs: Temp Pulse Resp BP Pulse Ox 97.7 F 85 20 158/95 H 97 09/01/17 15:07 09/01/17 15:07 09/01/17 15:34 09/01/17 15:34 09/01/17 15:34 - Laboratory Result Diagrams: 09/01/17 15:56 09/01/17 15:56 Laboratory results interpreted by me: 09/01/17 09/01/17 15:56 15:56 WBC 11.2 H RDW 14.7 H Plt Count 485 H Calcium 8.3 L AST 71 H - Diagnostic Test Radiology reviewed: Image reviewed, Reports reviewed Radiology results interpreted by me: CXR: NAD - EKG Interpretation by Me EKG shows normal: Sinus rhythm, [place], Intervals, QRS Complexes, ST-T Waves Rate: Normal Discharge - Discharge Clinical Impression: Acute exacerbation of chronic obstructive airways disease Condition: Stable Disposition: HOME, SELF-CARE Additional Instructions: BRONCHITIS WITH BRONCHOSPASM (WHEEZING): You have bronchitis with bronchospasm (wheezing). Sometimes people develop wheezing with a chest cold. This occurs either because of an underlying tendency toward asthma or because the virus itself irritates the bronchial tubes. This irritation causes cough, shortness of breath, and wheezing. Emergency treatment of bronchospasm may include adrenaline shots or bronchodilator aerosol. You may feel lightheaded and have a rapid pulse for an hour or two. Rest and get plenty of fluids. At home, we'll treat you with a bronchodilator inhaler. Corticosteroids may be required for some patients. Until you recover, avoid chemical fumes, dusts, pollens, and exercising in very cold or dry air. If you smoke, stop now! Most cases of bronchitis get better without antibiotics. We prescribe antibiotics when we believe bacteria are damaging your airways, or if there's high risk the bronchitis will worsen into pneumonia. Increase your fluid intake. A cool mist humidifier may make your lungs more comfortable. An expectorant (cough medicine that loosens phlegm) can help. Repeated episodes of bronchitis and bronchospasm may result in lung damage -- for example, chronic bronchitis, recurrent pneumonias, or emphysema. If you develop a fever, increased wheezing, chest pain, or severe shortness of breath, you should contact the doctor immediately. INHALED BRONCHODILATORS: You have received a treatment of and/or prescription for an inhaled bronchodilator -- a medication which stimulates the airways in the lung to dilate. This improves the flow of air in asthma, bronchitis, and emphysema. These medicines have some similarity to adrenaline, and can cause similar side effects: shakiness, racing heart, and a sense of nervousness. These side effects decrease with time. Contact your doctor if these side effects are severe. Do not over-use the medicine. Too-frequent use of the inhaler may make it ineffective. Call your doctor if the inhaler is not controlling your symptoms at the prescribed doses. STEROID MEDICATION: You have been given an injection of or oral medicine of the cortisone/ steroid class. This medication is used to control inflammation or allergy. Josiah t is usually only given for a short period of time, until the acute process subsides. There are usually no side effects from short-term use of cortisone-like medications. Some persons feel an increased sense of well-being and are not sleepy at bedtime. Long-term use of cortisone medications is best avoided, unless required for a severe condition. If your condition does not remit, or relapses after the course of corticosteroid medication, you should consult your physician. USE OF ACETAMINOPHEN (Tylenol): Acetaminophen may be taken for pain relief or fever control. It's much safer than aspirin, offering a wider range of "safe" dosages. It is safe during . Some brand names are Tylenol, Panadol, Datril, Anacin 3, Tempra, and Liquiprin. Acetaminophen can be repeated every four hours. The following are maximum recommended dosages: >89 pounds or adults 650 mg to 900 mg Acetaminophen can be repeated every four hours. Maximum dose not to exceed 4000 mg a day. SMOKING: If you smoke, you should stop smoking. The tar and chemicals in cigarette smoke are harmful. Smoking has been shown to cause: emphysema chronic bronchitis lung cancer mouth and throat cancer stomach and pancreas cancer premature aging defects In addition, smoking increases ear and lung infections in children of smokers. FOLLOW-UP CARE: If you have been referred to a physician for follow-up care, call the physician s office for an appointment as you were instructed or within the next two days. If you experience worsening or a significant change in your symptoms, notify the physician immediately or return to the Emergency Department at any time for re-evaluation. Prescriptions: Albuterol Sulfate [Proair HFA Inhalation Aerosol 8.5 gm MDI] 2 puff IH Q4H PRN # 1 mdi PRN Reason: Albuterol Sulfate [Albuterol Sulfate 2.5mg/3 mL] 1 vial IH Q4 PRN #30 vial PRN Reason: Prednisone [Deltasone 10 mg Tablet] 10 mg PO ASDIR PRN #42 tablet PRN Reason: Forms: Elevated Blood Pressure Referrals: KYLE MONTIEL MD [ACTIVE STAFF] - Follow up as needed
[2017-09-01 17:20] VITALS: BP 145/76
--- NOTE | 2017-09-01 19:20 | EKG REPORT ---
SEVERITY:- ABNORMAL ECG - SINUS RHYTHM LEFT ANTERIOR FASCICULAR BLOCK : Confirmed by: Biju Billings MD 01-Sep-2017 19:19:25
== END 2017-09-01 17:34 | disposition home or self-care (01) ==
LOC: ER 14:18
DX: J44.1 Chronic obstructive pulmonary disease with (acute) exacerbation (principal); R05 Cough; R06.02 Shortness of breath; Z87.891 Personal history of nicotine dependence; I25.10 Atherosclerotic heart disease of native coronary artery without angina pectoris; I10 Essential (primary) hypertension
CPT/HCPCS: 93005; 94640; 99285; 96374; 36415; 82550; 83605; 85025; 80053; 84484; 82803; 71046; 93010; J2930; A9270; J7620

== ENCOUNTER → 2018-05-18 | Outpatient (CLI) | payer MEDICARE, OTHER ==
[2018-05-18 11:26] LABS: ANION GAP 8 (5-19); BLOOD UREA NITROGEN 17 mg/dL (7-20); CALCIUM 9.2 mg/dL (8.4-10.2); CARBON DIOXIDE 31 mmol/L (22-30); CHLORIDE 103 mmol/L (98-107); CHOLESTEROL 146.34 mg/dL (0-200); GLUCOSE 95 mg/dL (75-110); POTASSIUM 4.2 mmol/L (3.6-5.0); SODIUM 141.8 mmol/L (137-145); TRIGLYCERIDES 161 mg/dL (<150)
[2018-05-18 11:37] LABS: DIRECT LDL 71 mg/dL (<100)
[2018-05-18 11:41] LABS: VLDL CHOLESTEROL 32.2 mg/dL (10-31)
[2018-05-19 11:37] LABS: CREATININE URINE 121.9 mg/dL (Not Estab.); MICROALBUMIN URINE 4.5 ug/mL (Not Estab.)
== END ==
LOC: OD 09:22
PROVIDERS: ATTEND Family Medicine
DX: E11.9 Type 2 diabetes mellitus without complications (principal); E78.5 Hyperlipidemia, unspecified; I10 Essential (primary) hypertension; Z79.899 Other long term (current) drug therapy
CPT/HCPCS: 36415; 80048; 80061; 82043; 82570; 83036; 84443

== ENCOUNTER → 2018-09-12 | Outpatient (CLI) | payer MEDICARE, OTHER | LOC: OD 13:25 | PROVIDERS: ATTEND Family Medicine | DX: E11.9 Type 2 diabetes mellitus without complications (principal); Z79.899 Other long term (current) drug therapy | CPT/HCPCS: 36415; 83036 ==

== ENCOUNTER 2019-02-22 13:42 | Emergency (ER) | payer MEDICARE, OTHER ==
--- NOTE | 2019-02-22 14:17 | ER Document Report ---
ED Medical Screen (RME) - General Chief Complaint: Leg Pain Stated Complaint: LEG PAIN Time Seen by Provider: 02/22/19 14:13 Primary Care Provider: MIGUEL ANGEL STALLWORTH MD [Primary Care Provider] - Follow up as needed Mode of Arrival: Ambulatory Information source: Patient Notes: 83-year-old female presented to ED for complaint of left leg pain. She states this started today. 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 She states she has never had a blood clot but other people in her family with the same affected disease has had multiple clot in her lungs and bodies. So she has come today to rule out a DVT in the left leg. Patient is alert oriented respirations regular and unlabored speaking in full sentences. I have greeted and performed a rapid initial assessment of this patient. A comprehensive ED assessment and evaluation of the patient, analysis of test results and completion of medical decision making process will be conducted by an additional ED providers. TRAVEL OUTSIDE OF THE [place] IN LAST 30 DAYS: No - Related Data Allergies/Adverse Reactions: Penicillins Allergy (Intermediate, Verified 02/22/19 14:12) Hives Past Medical History - Past Medical History Cardiac Medical History: Reports: Hx Coronary Artery Disease, Hx Hypercholesterolemia, Hx Hypertension - MEDICATED, Hx Pulmonary Embolism Denies: Hx Heart Attack Pulmonary Medical History: Reports: Hx Asthma, Hx Bronchitis, Hx COPD, Hx Pneumonia Neurological Medical History: Denies: Hx Cerebrovascular Accident, Hx Seizures Renal/ Medical History: Denies: Hx Peritoneal Dialysis GI Medical History: Reports: Hx Gastroesophageal Reflux Disease, Hx Hiatal Hernia. Denies: Hx Hepatitis, Hx Ulcer Musculoskeltal Medical History: Reports Hx Arthritis Infectious Medical History: Denies: Hx Hepatitis Past Surgical History: Reports: Hx Abdominal Surgery - tummy tuck, Hx Cholecystectomy, Hx Hysterectomy, Hx Orthopedic Surgery - right knee. Denies: Hx Mastectomy, Hx Open Heart Surgery, Hx Oral Surgery, Hx Pacemaker - Immunizations Hx Diphtheria, Pertussis, Tetanus Vaccination: Yes - 2008 Physical Exam - Vital signs Vitals: Temp Pulse Resp BP Pulse Ox 98.7 F 91 18 162/77 H 93 02/22/19 13:48 02/22/19 13:48 02/22/19 13:48 02/22/19 13:48 02/22/19 13:48 Course - Vital Signs Vital signs: Temp Pulse Resp BP Pulse Ox 98.7 F 91 18 162/77 H 93 02/22/19 13:48 02/22/19 13:48 02/22/19 13:48 02/22/19 13:48 02/22/19 13:48 Doctor's Discharge - Discharge Referrals: MIGUEL ANGEL STALLWORTH MD [Primary Care Provider] - Follow up as needed
[2019-02-22 15:30] LABS: ABSOLUTE BASOPHILS # (AUTO) 0.1 10^3/uL (0.0-0.2); ABSOLUTE LYMPHOCYTES (AUTO) 0.7 10^3/uL (0.5-4.7); ABSOLUTE MONOCYTES (AUTO) 0.2 10^3/uL (0.1-1.4); ABSOLUTE NEUT (AUTO) 9.2 10^3/uL (1.7-8.2); BASOPHILS % (AUTO) 0.6 % (0-2); EOSINOPHILS % (AUTO) 0.2 % (0-6); HEMATOCRIT 46.5 % (36.0-47.0); HEMOGLOBIN 15.5 g/dL (12.0-15.5); LYMPHOCYTES % (AUTO) 7.1 % (13-45); MEAN CORPUSCULAR HEMOGLOBIN 31.3 pg (27.0-33.4); MEAN CORPUSCULAR HGB CONC 33.4 g/dL (32.0-36.0); MEAN CORPUSCULAR VOLUME 94 fl (80-97); MONOCYTES % (AUTO) 2.3 % (3-13); PLATELET COUNT 300 10^3/uL (150-450); RED BLOOD COUNT 4.97 10^6/uL (3.72-5.28); RED CELL DISTRIBUTION WIDTH 14.6 % (11.5-14.0); SEGMENTED NEUTROPHILS % (AUTO) 89.8 % (42-78); TOTAL CELLS COUNTED % (AUTO) 100 %; WHITE BLOOD COUNT 10.2 10^3/uL (4.0-10.5)
[2019-02-22 15:31] LABS: INTERNATIONAL RATION (INR) 1.97; PROTHROMBIN TIME 22.7 SEC (11.4-15.4)
[2019-02-22 15:32] LABS: PARTIAL THROMBOPLASTIN TIME 32.2 SEC (23.5-35.8)
[2019-02-22 15:47] LABS: ALBUMIN 4.1 g/dL (3.5-5.0); ALKALINE PHOSPHATASE 93 U/L (38-126); ANION GAP 8 (5-19); ASPARTATE AMINO TRANSFERASE 29 U/L (14-36); BILIRUBIN,DIRECT 0.2 mg/dL (0.0-0.4); BILIRUBIN,TOTAL 0.6 mg/dL (0.2-1.3); BLOOD UREA NITROGEN 12 mg/dL (7-20); CALCIUM 9.2 mg/dL (8.4-10.2); CARBON DIOXIDE 32 mmol/L (22-30); CHLORIDE 99 mmol/L (98-107); CREATINE KINASE 58 U/L (30-135); GLUCOSE 131 mg/dL (75-110); POTASSIUM 4.8 mmol/L (3.6-5.0)
--- NOTE | 2019-02-22 16:26 | RADIOLOGY REPORT (SQ) ---
EXAM DESCRIPTION: VENOUS UNILATERAL LOWER COMPLETED DATE/TIME: 02/22/2019 4:18 pm REASON FOR STUDY: leg pain factor 5 disease COMPARISON: None. TECHNIQUE: Dynamic and static rodriguez scale and color images acquired of the left leg venous system. Se lected spectral images acquired with additional compression and augmentation maneuvers. The contralat eral common femoral vein and saphenofemoral junction were also imaged. Images stored on PACS. LIMITATIONS: None. FINDINGS: LEFT: COMMON FEMORAL: Normal phasicity, compression and augmentation. No visualized echogenic material on g ray scale. No defects on color images. FEMORAL: Normal compression and augmentation. No visualized echogenic material on rodriguez scale. No defe cts on color images. POPLITEAL: Normal compression, augmentation. No visualized echogenic material on rodriguez scale. No defec ts on color images. CALF VESSELS: Normal compression, augmentation. No visualized echogenic material on rodriguez scale. No de fects on color images. GSV and SSV: Normal compression, augmentation. No visualized echogenic material on rodriguez scale. No def ects on color images. ANY DEEP VENOUS INSUFFICIENCY: Not evaluated. ANY EVIDENCE OF POPLITEAL CYST: No. OTHER: No other significant finding. RIGHT COMMON FEMORAL VEIN AND SAPHENOFEMORAL JUNCTION: Normal phasicity, compression and augmentation. No visualized echogenic material on rodriguez scale. No de fects on color images. IMPRESSION: NO EVIDENCE OF DVT OR SVT IN THE LEFT LEG. TECHNICAL DOCUMENTATION: JOB ID: [id number] [employer]- All Rights Reserved Reading location - IP/workstation name: [email or web address]
[2019-02-22 17:06] VITALS: BP 138/73
--- NOTE | 2019-02-23 00:40 | ER Document Report ---
Entered by SHILOH REA SCRIBE 02/22/19 1724 Acting as scribe for:CAROL NARVAEZ DO ED Extremity Problem, Lower - General Chief Complaint: Leg Pain Stated Complaint: LEG PAIN Time Seen by Provider: 02/22/19 14:13 Primary Care Provider: MIGUEL ANGEL STALLWORTH MD [Primary Care Provider] - Follow up in 3-5 days Mode of Arrival: Ambulatory Information source: Patient Notes: Patient is an 83 year old female that presents to the emergency department today with complaints of left leg pain. Patient has factor V Leiden deficiency and she is worried about a possible DVT. 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 Patient states she felt the pain today when putting her pants on after shower. Patient denies any fall or trauma. TRAVEL OUTSIDE OF THE [place] IN LAST 30 DAYS: No - Related Data Allergies/Adverse Reactions: Penicillins Allergy (Intermediate, Verified 02/22/19 14:12) Hives Past Medical History - General Information source: Patient - Social History Smoking Status: Former Smoker Cigarette use (# per day): No Chew tobacco use (# tins/day): No Frequency of alcohol use: None Drug Abuse: None Lives with: Family Family History: Reviewed & Not Pertinent, Other Patient has suicidal ideation: No Patient has homicidal ideation: No - Past Medical History Cardiac Medical History: Reports: Hx Coronary Artery Disease, Hx Hypercholesterolemia, Hx Hypertension - MEDICATED, Hx Pulmonary Embolism Pulmonary Medical History: Reports: Hx Asthma, Hx Bronchitis, Hx COPD, Hx Pneumonia GI Medical History: Reports: Hx Gastroesophageal Reflux Disease, Hx Hiatal Hernia Musculoskeletal Medical History: Reports Hx Arthritis Infectious Medical History: Denies: Hx Hepatitis Past Surgical History: Reports: Hx Abdominal Surgery - tummy tuck, Hx Cholecystectomy, Hx Hysterectomy, Hx Orthopedic Surgery - right knee. Denies: Hx Mastectomy, Hx Open Heart Surgery, Hx Oral Surgery, Hx Pacemaker - Immunizations Hx Diphtheria, Pertussis, Tetanus Vaccination: Yes - 2008 Review of Systems - Review of Systems Constitutional: No symptoms reported EENT: No symptoms reported Cardiovascular: No symptoms reported Respiratory: No symptoms reported Gastrointestinal: No symptoms reported Genitourinary: No symptoms reported Female Genitourinary: No symptoms reported Musculoskeletal: See HPI, Other - left leg pain Skin: No symptoms reported Hematologic/Lymphatic: No symptoms reported Neurological/Psychological: No symptoms reported -: Yes All other systems reviewed and negative Physical Exam - Vital signs Vitals: Temp Pulse Resp BP Pulse Ox 98.7 F 91 18 162/77 H 93 02/22/19 13:48 02/22/19 13:48 02/22/19 13:48 02/22/19 13:48 02/22/19 13:48 Interpretation: Normal - General General appearance: Appears well, Alert - HEENT Head: Normocephalic, Atraumatic Eyes: Normal Pupils: PERRL - Respiratory Respiratory status: No respiratory distress Chest status: Nontender Breath sounds: Normal Chest palpation: Normal - Cardiovascular Rhythm: Regular Heart sounds: Normal auscultation Murmur: No - Abdominal Inspection: Normal Distension: No distension Bowel sounds: Normal Tenderness: Nontender Organomegaly: No organomegaly - Back Back: Normal, Nontender - Extremities General upper extremity: Normal inspection, Nontender, Normal color, Normal ROM, Normal temperature General lower extremity: Normal inspection, Tender, Normal color, Normal ROM, Normal temperature, Normal weight bearing. No: Edema, Shamir's sign Shoulder: Normal Arm: Normal Elbow: Normal Forearm: Normal Wrist: Normal Hand: Normal Hip: Normal Thigh: Tender - Medial left thigh tenderness to palpation. No erythema or fluctuance. Knee: Normal Calf: Tender - Medial left calf tenderness to palpation with small rubbery nodule appreciated. No erythema, fluctuance. Ankle: Normal Foot: Normal - Neurological Neuro grossly intact: Yes Cognition: Normal Orientation: AAOx4 [place] Coma Scale Eye Opening: Spontaneous [place] Coma Scale Verbal: Oriented [place] Coma Scale Motor: Obeys Commands Soham Coma Scale Total: 15 Speech: Normal Motor strength normal: LUE, RUE, LLE, RLE Sensory: Normal - Psychological Associated symptoms: Normal affect, Normal mood - Skin Skin Temperature: Warm Skin Moisture: Dry Skin Color: Normal Course - Re-evaluation Re-evalutation: 02/22/19 22:06 Patient is an 83-year-old female with a history of factor V Leiden deficiency and history of blood clots who comes in with concern for a DVT. Patient is complaining of pain in her left lower leg. Full range of motion, strength. Able to ambulate. No fever. No abscess or induration. Patient was painting recently. Tenderness to palpation at tendon insertion. No evidence for DVT on Doppler. No evidence for infection on exam. Patient ambulates easily. Likely muscle strain. Follow-up with PMD. Return if any further concerns. Stable for discharge. - Vital Signs Vital signs: Temp Pulse Resp BP Pulse Ox 98.7 F 91 27 H 138/73 H 95 02/22/19 13:48 02/22/19 13:48 02/22/19 17:01 02/22/19 17:01 02/22/19 17:01 - Laboratory Result Diagrams: 02/22/19 14:32 02/22/19 14:32 Laboratory results interpreted by me: 02/22/19 02/22/19 02/22/19 14:32 14:32 14:32 RDW 14.6 H Lymph % (Auto) 7.1 L [place] % (Auto) 2.3 L Absolute Neuts (auto) 9.2 H Seg Neutrophils % 89.8 H PT 22.7 H Carbon Dioxide 32 H Glucose 131 H - Diagnostic Test Radiology reviewed: Reports reviewed Discharge - Discharge Clinical Impression: Leg pain, left Condition: Stable Disposition: HOME, SELF-CARE Instructions: Leg Pain Nonspecific ([facility]) Referrals: MIGUEL ANGEL STALLWORTH MD [Primary Care Provider] - Follow up in 3-5 days I personally performed the services described in the documentation, reviewed and edited the documentation which was dictated to the scribe in my presence, and it accurately records my words and actions.
== END 2019-02-22 21:11 | disposition home or self-care (01) ==
LOC: ER 13:42
DX: M79.605 Pain in left leg (principal); Z87.891 Personal history of nicotine dependence; I25.10 Atherosclerotic heart disease of native coronary artery without angina pectoris; I10 Essential (primary) hypertension; J44.9 Chronic obstructive pulmonary disease, unspecified
CPT/HCPCS: 36415; 80053; 82550; 83735; 85025; 85610; 85730; 93971; 99284

== ENCOUNTER → 2019-03-21 | Outpatient (CLI) | payer MEDICARE, OTHER ==
[2019-03-21 12:32] LABS: ANION GAP 9 (5-19); BLOOD UREA NITROGEN 11 mg/dL (7-20); CALCIUM 9.6 mg/dL (8.4-10.2); CARBON DIOXIDE 33 mmol/L (22-30); CHLORIDE 103 mmol/L (98-107); CHOLESTEROL 133.26 mg/dL (0-200); GLUCOSE 96 mg/dL (75-110); POTASSIUM 3.9 mmol/L (3.6-5.0); TRIGLYCERIDES 129 mg/dL (<150)
[2019-03-21 12:44] LABS: DIRECT LDL 68 mg/dL (<100)
[2019-03-22 09:37] LABS: CREATININE URINE 247.4 mg/dL (Not Estab.); MICROALBUMIN URINE 32.5 ug/mL (Not Estab.)
== END ==
LOC: OD 11:25
PROVIDERS: ATTEND Family Medicine
DX: E11.9 Type 2 diabetes mellitus without complications (principal); E78.5 Hyperlipidemia, unspecified; I10 Essential (primary) hypertension; Z79.899 Other long term (current) drug therapy
CPT/HCPCS: 36415; 80048; 80061; 82043; 82570; 83036; 84443

== ENCOUNTER 2019-06-12 13:26 | Emergency (ER) | payer MEDICARE, OTHER ==
--- NOTE | 2019-06-12 13:40 | ER Document Report ---
ED Medical Screen (RME) - General Chief Complaint: Shortness Of Breath Stated Complaint: SHORTNESS OF BREATH/ASTHMA Time Seen by Provider: 06/12/19 13:36 Primary Care Provider: MIGUEL ANGEL STALLWORTH MD [Primary Care Provider] - Follow up as needed TRAVEL OUTSIDE OF THE [place] IN LAST 30 DAYS: No - HPI Notes: 06/12/19 13:39 Patient is an 83-year-old female with a history of COPD, hypertension, diabetes who presents complaining of harsh dry cough that is been relatively constant as well as wheezing for the past several days, but having a cough overall for the past 2 to 3 weeks. Patient was diagnosed with pneumonia early on in the illness by an urgent care and took Zithromax without any relief. She is able to eat and drink without difficulty. She is urinating normally. No fever or chest pain aside from when she is coughing. I have treated and performed a rapid initial assessment of this patient. A comprehensive ED assessment and evaluation of the patient, analysis of test results and completion of medical decision making process will be conducted by additional ED providers. PHYSICAL EXAMINATION: GENERAL: Well-appearing, well-nourished and in no acute distress. Lungs: Wheezing throughout and a harsh dry cough noted. No retractions. Extremities: No edema - Related Data Allergies/Adverse Reactions: Penicillins Allergy (Intermediate, Verified 06/12/19 13:35) Hives Past Medical History - Past Medical History Cardiac Medical History: Reports: Hx Coronary Artery Disease, Hx Hypercholesterolemia, Hx Hypertension - MEDICATED, Hx Pulmonary Embolism Denies: Hx Heart Attack Pulmonary Medical History: Reports: Hx Asthma, Hx Bronchitis, Hx COPD, Hx Pneumonia Neurological Medical History: Denies: Hx Cerebrovascular Accident, Hx Seizures Renal/ Medical History: Denies: Hx Peritoneal Dialysis GI Medical History: Reports: Hx Gastroesophageal Reflux Disease, Hx Hiatal Hernia. Denies: Hx Hepatitis, Hx Ulcer Musculoskeltal Medical History: Reports Hx Arthritis Infectious Medical History: Denies: Hx Hepatitis Past Surgical History: Reports: Hx Abdominal Surgery - tummy tuck, Hx Cholecystectomy, Hx Hysterectomy, Hx Orthopedic Surgery - right knee. Denies: Hx Mastectomy, Hx Open Heart Surgery, Hx Oral Surgery, Hx Pacemaker - Immunizations Hx Diphtheria, Pertussis, Tetanus Vaccination: Yes - 2008 Physical Exam - Vital signs Vitals: Temp Pulse Resp BP Pulse Ox 98.3 F 88 36 H 160/83 H 94 06/12/19 13:27 06/12/19 13:27 06/12/19 13:27 06/12/19 13:27 06/12/19 13:27 Course - Vital Signs Vital signs: Temp Pulse Resp BP Pulse Ox 98.3 F 88 36 H 160/83 H 94 06/12/19 13:27 06/12/19 13:27 06/12/19 13:27 06/12/19 13:27 06/12/19 13:27 Doctor's Discharge - Discharge Referrals: MIGUEL ANGEL STALLWORTH MD [Primary Care Provider] - Follow up as needed
[2019-06-12] MEDS ORDERED: IPRATROPIUM/ALBUTEROL 0.5-2.5 MG/3 ML AMPUL NEB ONE (13:45)
[2019-06-12] MEDS ORDERED: METHYLPREDNISOLONE INJ 125 MG/2 ML SDV IV ONE (13:45)
[2019-06-12] MEDS ORDERED: MAGNESIUM SULFATE/D5W 1 GM/100 ML RTUPB IV ONE ×2 (13:45→13:46)
[2019-06-12 14:20] LABS: VENOUS BLOOD BASE EXCESS 4.9 mmol/L; VENOUS BLOOD HCO3 30.2 mmol/L (20-32); VENOUS BLOOD PCO2 47.1 mmHg (35-63); VENOUS BLOOD PH 7.43 (7.30-7.42)
[2019-06-12 14:35] LABS: ABSOLUTE BASOPHILS # (AUTO) 0.1 10^3/uL (0.0-0.2); ABSOLUTE EOSINOPHILS # (AUTO) 0.2 10^3/uL (0.0-0.6); ABSOLUTE LYMPHOCYTES (AUTO) 1.8 10^3/uL (0.5-4.7); ABSOLUTE MONOCYTES (AUTO) 0.5 10^3/uL (0.1-1.4); ABSOLUTE NEUT (AUTO) 5.9 10^3/uL (1.7-8.2); BASOPHILS % (AUTO) 1.1 % (0-2); EOSINOPHILS % (AUTO) 2.4 % (0-6); HEMOGLOBIN 14.2 g/dL (12.0-15.5); LYMPHOCYTES % (AUTO) 21.3 % (13-45); MEAN CORPUSCULAR HEMOGLOBIN 32.6 pg (27.0-33.4); MEAN CORPUSCULAR HGB CONC 34.6 g/dL (32.0-36.0); MEAN CORPUSCULAR VOLUME 94 fl (80-97); MONOCYTES % (AUTO) 5.7 % (3-13); PLATELET COUNT 302 10^3/uL (150-450); RED BLOOD COUNT 4.36 10^6/uL (3.72-5.28); RED CELL DISTRIBUTION WIDTH 14.4 % (11.5-14.0); SEGMENTED NEUTROPHILS % (AUTO) 69.5 % (42-78); TOTAL CELLS COUNTED % (AUTO) 100 %; WHITE BLOOD COUNT 8.5 10^3/uL (4.0-10.5)
[2019-06-12 14:36] LABS: ALBUMIN 3.7 g/dL (3.5-5.0); ALKALINE PHOSPHATASE 57 U/L (38-126); ANION GAP 8 (5-19); ASPARTATE AMINO TRANSFERASE 23 U/L (14-36); BILIRUBIN,DIRECT 0.2 mg/dL (0.0-0.4); BILIRUBIN,TOTAL 0.4 mg/dL (0.2-1.3); BLOOD UREA NITROGEN 11 mg/dL (7-20); CALCIUM 9.2 mg/dL (8.4-10.2); CARBON DIOXIDE 31 mmol/L (22-30); CHLORIDE 100 mmol/L (98-107); GLUCOSE 199 mg/dL (75-110); POTASSIUM 3.8 mmol/L (3.6-5.0); TOTAL PROTEIN 6.6 g/dL (6.3-8.2)
--- NOTE | 2019-06-12 14:51 | RADIOLOGY REPORT (SQ) ---
EXAM DESCRIPTION: CHEST 2 VIEWS COMPLETED DATE/TIME: 06/12/2019 2:38 pm REASON FOR STUDY: cough COMPARISON: 09/01/2017 EXAM PARAMETERS: NUMBER OF VIEWS: two views TECHNIQUE: Digital Frontal and Lateral radiographic views of the chest acquired. RADIATION DOSE: NA LIMITATIONS: none FINDINGS: LUNGS AND PLEURA: No opacities, masses or pneumothorax. No pleural effusion. MEDIASTINUM AND HILAR STRUCTURES: No masses or contour abnormalities. HEART AND VASCULAR STRUCTURES: Heart normal size. No evidence for failure. BONES: No acute findings. HARDWARE: None in the chest. OTHER: There is a moderate size hiatal hernia. IMPRESSION: Moderate hiatal hernia unchanged. No acute findings. TECHNICAL DOCUMENTATION: JOB ID: [id number] [employer]- All Rights Reserved Reading location - IP/workstation name: [email or web address]
[2019-06-12 15:00] LABS: APPEARANCE,URINE SLIGHTLY-CLOUDY; BILIRUBIN,URINE NEGATIVE (NEGATIVE); COLOR,URINE AMBER; GLUCOSE, URINE NEGATIVE (NEGATIVE); KETONES,URINE TRACE mg/dL (NEGATIVE); PROTEIN,URINE NEGATIVE (NEGATIVE); URINE SPECIFIC GRAVITY 1.021
[2019-06-12] MEDS ORDERED: ALBUTEROL SULFATE 0.083% NEB 2.5 MG/3 ML AMPUL NEB ONE ×2 (15:37→17:07)
[2019-06-12 15:52] LABS: INTERNATIONAL RATION (INR) 2.28; PROTHROMBIN TIME 25.5 SEC (11.4-15.4)
--- NOTE | 2019-06-12 16:00 | ER Document Report ---
Entered by MIGUEL GAITAN SCRIBE 06/12/19 1421 Acting as scribe for:HEDY BURGOS MD ED General - General Chief Complaint: Cough Stated Complaint: SHORTNESS OF BREATH/ASTHMA Time Seen by Provider: 06/12/19 13:36 Primary Care Provider: MIGUEL ANGEL STALLWORTH MD [Primary Care Provider] - Follow up as needed Information source: Patient Notes: 83 year old female presents to the ED with productive cough. Patient states that the cough started a couple of weeks ago and started to become productive recently with clear sputum. Patient also states that she has had wheezing for a couple of days. Patient was seen a couple days ago at another clinic and was diagnosed with Pneumonia by chest xray and was prescribed Zithromax without much change in her cough. Patient has a nebulizer but has not used it lately. Patient has been using inhaler which has little affect on the cough. TRAVEL OUTSIDE OF THE [place] IN LAST 30 DAYS: No - Related Data Allergies/Adverse Reactions: Penicillins Allergy (Intermediate, Verified 06/12/19 13:35) Hives Home Medications: coumadin, lisinopril cholesterol medication Past Medical History - General Information source: Patient - Social History Smoking Status: Former Smoker Chew tobacco use (# tins/day): No Frequency of alcohol use: None Drug Abuse: None Family History: Reviewed & Not Pertinent, Other Patient has suicidal ideation: No Patient has homicidal ideation: No - Past Medical History Cardiac Medical History: Reports: Hx Coronary Artery Disease, Hx Hypercholesterolemia, Hx Hypertension - MEDICATED, Hx Pulmonary Embolism Pulmonary Medical History: Reports: Hx Asthma, Hx Bronchitis, Hx COPD, Hx Pneumonia GI Medical History: Reports: Hx Gastroesophageal Reflux Disease, Hx Hiatal Hernia Musculoskeletal Medical History: Reports Hx Arthritis Past Surgical History: Reports: Hx Abdominal Surgery - tummy tuck, Hx Cholecystectomy, Hx Hysterectomy, Hx Orthopedic Surgery - right knee - Immunizations Hx Diphtheria, Pertussis, Tetanus Vaccination: Yes - 2008 Review of Systems - Review of Systems Constitutional: No symptoms reported EENT: No symptoms reported Cardiovascular: No symptoms reported Respiratory: See HPI, Cough, Sputum, Wheezing Gastrointestinal: No symptoms reported Genitourinary: No symptoms reported Female Genitourinary: No symptoms reported Musculoskeletal: No symptoms reported Skin: No symptoms reported Hematologic/Lymphatic: No symptoms reported Neurological/Psychological: Other - Patient notes for the past week or more a dizzy type sensation when she looks upward and holds her head extended. It goes away when she looks down. It does not occur when she looks left or right rapidly. -: Yes All other systems reviewed and negative Physical Exam - Vital signs Vitals: Temp Pulse Resp BP Pulse Ox 98.3 F 88 36 H 160/83 H 94 06/12/19 13:27 06/12/19 13:27 06/12/19 13:27 06/12/19 13:27 06/12/19 13:27 Interpretation: Normal - General General appearance: Appears well, Alert - HEENT Head: Normocephalic, Atraumatic Eyes: Normal, Other - No nystagmus or dizziness noted on looking left right with the eyes or turning the head rapidly left right, up or down. Pupils: PERRL - Respiratory Respiratory status: No respiratory distress Breath sounds: Productive cough, Rhonchi, Wheezing Chest palpation: Normal - Cardiovascular Rhythm: Regular Heart sounds: Normal auscultation Murmur: No - Abdominal Inspection: Normal Distension: No distension Bowel sounds: Normal Tenderness: Nontender Organomegaly: No organomegaly - Back Back: Normal, Nontender - Extremities General upper extremity: Normal inspection. No: Edema General lower extremity: Normal inspection. No: Edema - Neurological Neuro grossly intact: Yes Cognition: Normal Orientation: AAOx4 [place] Coma Scale Eye Opening: Spontaneous [place] Coma Scale Verbal: Oriented [place] Coma Scale Motor: Obeys Commands [place] Coma Scale Total: 15 Speech: Normal - Psychological Associated symptoms: Normal affect, Normal mood - Skin Skin Temperature: Warm Skin Moisture: Dry Skin Color: Normal Course - Re-evaluation Re-evalutation: 06/12/19 19:25 Patient's breathing is much better at this time. Wheezes and rhonchi are markedly decreased from what they were earlier. She reports that her breathing does feel much better to her. She will be discharged home with a prescription for prednisone and encouraged to take Robitussin-DM to help loosen the mucus in her chest. - Vital Signs Vital signs: Temp Pulse Resp BP Pulse Ox 98.3 F 88 15 160/83 H 96 06/12/19 13:27 06/12/19 13:27 06/12/19 15:00 06/12/19 13:27 06/12/19 15:00 - Laboratory Result Diagrams: 06/12/19 14:02 06/12/19 14:02 Laboratory results interpreted by me: 06/12/19 06/12/19 06/12/19 14:02 14:02 14:02 RDW 14.4 H PT VBG pH 7.43 H Carbon Dioxide 31 H Glucose 199 H Urine Ketones Urine Urobilinogen Leukocyte Esterase Rfl 06/12/19 06/12/19 14:02 14:40 RDW PT 25.5 H VBG pH Carbon Dioxide Glucose Urine Ketones TRACE H Urine Urobilinogen 2.0 H Leukocyte Esterase Rfl TRACE H - Diagnostic Test Radiology reviewed: Image reviewed, Reports reviewed - Chest x-ray does not show any acute findings. There is a large hiatal hernia that is unchanged. - EKG Interpretation by Me EKG shows normal: Sinus rhythm, [place], Intervals, QRS Complexes. abnormal: ST-T Waves - Borderline anterior lateral T abnormalities Rate: Normal - 83 Rhythm: NSR [place]/QRS: Left axis deviation Discharge - Discharge Clinical Impression: COPD with acute exacerbation High blood pressure Qualifiers: Hypertension type: essential hypertension Qualified Code(s): I10 - Essential (primary) hypertension Condition: Stable Disposition: HOME, SELF-CARE Additional Instructions: Bronchitis with Bronchospasm (Wheezing): You have bronchitis with bronchospasm (wheezing). Sometimes people develop wheezing with a chest cold. This occurs either because of an underlying tendency toward asthma or because the virus itself irritates the bronchial tubes. This irritation causes cough, shortness of breath, and wheezing. Emergency treatment of bronchospasm may include adrenaline shots or bronchodilator aerosol. You may feel lightheaded and have a rapid pulse for an hour or two. Rest and get plenty of fluids. At home, we'll treat you with a bronchodilator inhaler. Corticosteroids may be required for some patients. Until you recover, avoid chemical fumes, dusts, pollens, and exercising in very cold or dry air. If you smoke, stop now! Most cases of bronchitis get better without antibiotics. We prescribe antibiotics when we believe bacteria are damaging your airways, or if there's high risk the bronchitis will worsen into pneumonia. Increase your fluid intake. A cool mist humidifier may make your lungs more comfortable. An expectorant (cough medicine that loosens phlegm) can help. Repeated episodes of bronchitis and bronchospasm may result in lung damage -- for example, chronic bronchitis, recurrent pneumonias, or emphysema. If you develop a fever, increased wheezing, chest pain, or severe shortness of breath, you should contact the doctor immediately. Start the prednisone tomorrow as prescribed. Try taking Robitussin-DM to help suppress your cough and to help loosen the mucus so you can cough it up. Use your nebulizer breathing treatments every 4 hours for the next few days. Get plenty of rest and drink plenty of fluids. Follow-up with your primary care provider if you are not improving. RETURN TO THE EMERGENCY ROOM IF ANY NEW OR WORSENING SYMPTOMS. Prescriptions: Prednisone [Deltasone 10 mg Tablet] 10 mg PO ASDIR PRN #21 tablet PRN Reason: Referrals: MIGUEL ANGEL STALLWORTH MD [Primary Care Provider] - Follow up as needed Scribe Attestation: 06/12/19 19:29 I personally performed the services described in the documentation, reviewed and edited the documentation which was dictated to the scribe in my presence, and it accurately records my words and actions. I personally performed the services described in the documentation, reviewed and edited the documentation which was dictated to the scribe in my presence, and it accurately records my words and actions.
--- NOTE | 2019-06-12 16:32 | EKG REPORT ---
SEVERITY:- ABNORMAL ECG - SINUS RHYTHM LAD, CONSIDER LAFB OR INFERIOR INFARCT BORDERLINE T ABNORMALITIES, ANT-LAT LEADS : Confirmed by: Biju Billings MD 12-Jun-2019 16:31:51
[2019-06-12] MEDS ORDERED: PREDNISONE 20 MG TABLET PO ONE (19:25)
[2019-06-12] MEDS ORDERED: GUAIFENESIN/D-METHORPHAN (200-20 MG) SYRUP 10 ML PO ONE (19:28)
[2019-06-12 19:41] VITALS: BP 134/80
== END 2019-06-12 19:41 | disposition home or self-care (01) ==
LOC: ER 13:26
DX: J44.1 Chronic obstructive pulmonary disease with (acute) exacerbation (principal); I10 Essential (primary) hypertension; R05 Cough; R42 Dizziness and giddiness; K44.9 Diaphragmatic hernia without obstruction or gangrene; I25.10 Atherosclerotic heart disease of native coronary artery without angina pectoris; E78.00 Pure hypercholesterolemia, unspecified; Z79.01 Long term (current) use of anticoagulants; Z79.899 Other long term (current) drug therapy; Z87.891 Personal history of nicotine dependence; Z88.0 Allergy status to penicillin
CPT/HCPCS: 93005; 94640 ×2; 99285; 96375; 96365; 36415; 87086; 85025; 85610; 80053; 81001; 82803; 83880; 71046; 93010; J2930; J3475; A9270 ×4; J3490; J7512; J7620

== ENCOUNTER → 2020-04-28 | Outpatient (CLI) | payer MEDICARE, OTHER ==
[2020-04-28 12:49] LABS: ANION GAP 7 (5-19); BLOOD UREA NITROGEN 12 mg/dL (7-20); CALCIUM 9.2 mg/dL (8.4-10.2); CARBON DIOXIDE 29 mmol/L (22-30); CHLORIDE 106 mmol/L (98-107); CHOLESTEROL 124.71 mg/dL (0-200); GLUCOSE 98 mg/dL (75-110); POTASSIUM 4.2 mmol/L (3.6-5.0); TRIGLYCERIDES 130 mg/dL (<150)
[2020-04-28 12:59] LABS: DIRECT LDL 42 mg/dL (<100)
[2020-04-29 14:37] LABS: CREATININE URINE 159.2 mg/dL (Not Estab.); MICROALBUMIN URINE 11.4 ug/mL (Not Estab.)
== END ==
LOC: OD 11:24
PROVIDERS: ATTEND Family Medicine
DX: E11.65 Type 2 diabetes mellitus with hyperglycemia (principal); E78.5 Hyperlipidemia, unspecified; I10 Essential (primary) hypertension; Z79.899 Other long term (current) drug therapy
CPT/HCPCS: 36415; 80048; 80061; 82043; 82570; 83036; 84443